=== PATIENT | male | born 1965 | race Caucasian/White ===

== ENCOUNTER 2017-01-21 08:30 | Emergency (ER) | payer OTHER ==
--- NOTE | 2017-01-21 08:32 | PDOC ---
History of Present Illness - General Chief Complaint: Sore Throat Stated Complaint: SORE THROAT Time Seen by Provider: 01/21/17 08:32 History Source: Patient Exam Limitations: No Limitations - History of Present Illness Initial Comments: 01/21/17 08:32 This is a 51-year-old male who presents emergency department with a complaint of sore throat present for the past 3 days No fevers (+) cough, (+) rhinorrhea His daughter had strep throat approximately 3 months ago Pt concenred that he has the same PMH: Denies PSH: Denies Medications: ALL: NKDA Social: GENERAL/CONSTITUTIONAL: No: fever, chills, weakness, loss of appetite. HEAD, EYES, EARS, NOSE AND THROAT: (+) Throat pain CARDIOVASCULAR: No: chest pain, lightheadedness, palpitations, syncope RESPIRATORY: No: cough, shortness of breath, wheezing, hemoptysis, stridor. GASTROINTESTINAL: No: nausea, vomiting GENERAL: The patient is in no acute distress. HEAD: Normal with no signs of trauma. EYES: PERRLA, EOMI, sclera anicteric, conjunctiva clear. ENT: Ears normal, nares patent, oropharynx erythematous, no exudates. Moist mucous membranes. 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 01/21/17 08:49 Past History - Past Medical History Allergies/Adverse Reactions: Allergies Allergy/AdvReac Type Severity Reaction Status Date / Time No Known Allergies Allergy Verified 01/21/17 08:31 Home Medications: Ambulatory Orders NK [No Known Home Medication] 01/21/17 Medical Decision Making - Medical Decision Making 01/21/17 08:51 Rapid strep negative Will discharge to home *DC/Admit/Observation/Transfer Diagnosis at time of Disposition: Pharyngitis Qualifiers: Pharyngitis/tonsillitis etiology: other specified organisms Qualified Code(s): J02.8 - Acute pharyngitis due to other specified organisms - Discharge Dispostion Disposition: HOME Condition at time of disposition: Stable Admit: No - Patient Instructions Printed Discharge Instructions: DI for Viral Pharyngitis Additional Instructions: Return to the emergency department immediately with ANY new, persistent or worsening symptoms. Continue any medications as previously prescribed by your physician. You should follow up with your primary doctor as soon as possible regarding today's emergency department visit. . Please make sure your doctor reviews the results of your emergency evaluation. Thank you for coming to the [facility] today for your care. It was a pleasure to see you today. Please note that your evaluation is INCOMPLETE until you follow-up with your doctor.
[2017-01-21 08:33] VITALS: BP 126/91; PULSE 72; TEMP 98.5; BMI 29.7
== END 2017-01-21 10:08 | disposition home or self-care (01) ==
LOC: FER 08:30
DX: J02.8 Acute pharyngitis due to other specified organisms (principal)
CPT/HCPCS: 87070; 87430; 99281-25

== ENCOUNTER 2017-02-13 10:45 | Emergency (ER) | payer OTHER ==
[2017-02-13 10:50] VITALS: BP 133/97; PULSE 67; TEMP 98.7; BMI 29.7
--- NOTE | 2017-02-13 11:09 | PDOC ---
History of Present Illness - General Chief Complaint: Pain Stated Complaint: RIGHT HEEL/LEG PAIN Time Seen by Provider: 02/13/17 10:50 History Source: Patient Exam Limitations: No Limitations - History of Present Illness Initial Comments: 02/13/17 11:01 52 y/o male with right foot pain and right thumb pain. Patient denies fall or trauma. This pain has been present for over 2 months, takes Advil once in a while for the pain. No SOB or chest pain. No swelling or redness. Patient states that he has seen an internal control specialist and had a torn labrum in right hip. MRI done showed some vascular lesions. 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 Had 2 biopsies done and no new cancer development. Denies redness or swelling as well to the thumb. No fever or chills. Worse in the morning. Severity: mild Past History - Past Medical History Allergies/Adverse Reactions: Allergies Allergy/AdvReac Type Severity Reaction Status Date / Time No Known Allergies Allergy Verified 02/13/17 10:52 Home Medications: Ambulatory Orders NK [No Known Home Medication] 01/21/17 Cancer: Yes (MELANOMA OF RIGHT THUMB) Other medical history: TORN LABRUM - Psycho/Social/Smoking Cessation Hx Anxiety: No Suicidal Ideation: No Smoking History: Former smoker Have you smoked in the past 12 months: No If you are a former smoker, when did you quit?: 17 YEARS AGO Information on smoking cessation initiated: No Hx Alcohol Use: No Drug/Substance Use Hx: No Substance Use Type: None Review of Systems - Review of Systems Able to Perform ROS?: Yes Is the patient limited Kinyarwanda proficient: No Constitutional: No: Chills, Fever Respiratory: No: Cough, Shortness of Breath Cardiac (ROS): No: Chest Pain, Palpitations ABD/GI: No: Nausea, Vomiting Integumentary: No: Bruising, Change in Hair/Nails, Erythema Neurological: No: Numbness, Paresthesia All Other Systems: Reviewed and Negative *Physical Exam - Vital Signs Last Vital Signs Temp Pulse Resp BP Pulse Ox 98.7 F 67 18 133/97 96 02/13/17 10:47 02/13/17 10:47 02/13/17 10:47 02/13/17 10:47 02/13/17 10:47 - Physical Exam General Appearance: Yes: Nourished, Appropriately Dressed. No: Apparent Distress HEENT: positive: EOMI, GERARDO, Normal ENT Inspection Neck: positive: Trachea midline, Normal Thyroid, Supple Respiratory/Chest: positive: Lungs Clear, Normal Breath Sounds Cardiovascular: positive: Regular Rhythm, Regular Rate, S1, S2 Vascular Pulses: Femoral (R): 4+, Femoral (L): 4+, Carotid (R): 4+, Carotid (L) : 4+, Dorsalis-Pedis (R): 4+, Doralis-Pedis (L): 4+ Gastrointestinal/Abdominal: positive: Normal Bowel Sounds, Flat, Soft, Pulsatile Mass. negative: Tender, Organomegaly Lymphatic: negative: Adenopathy, Tenderness, Other Musculoskeletal: positive: Normal Inspection. negative: CVA Tenderness, Vertebral Tenderness Extremity: positive: Normal Capillary Refill, Normal Inspection, Normal Range of Motion, Other (right leg pulses 2+/4 b/l in LE, no focal deficits noted, full ROM, no compartment syndrome, no redness or swelling, no heel pain). negative: Tender, Coldness, Delayed Capillary Refill, Pedal Edema, Swelling, Calf Tenderness, Erythema Integumentary: positive: Normal Color, Dry, Warm, Other (right thumb with no nail, skin over grown, no swelling or erythma, full ROM, no tenderness noted). negative: Erythema, Mottled, Cold, Diaphoresis, Hives, Petechiae, Swelling, Ecchymosis, Bruising Neurologic: positive: metal stamper II-XII NML intact, Fully Oriented, Alert, Normal Mood/ Affect, Normal Response, Motor Strength 5/5. negative: Numbness, Sensory Deficit ED Treatment Course - ADDITIONAL ORDERS Additional order review: 02/13/17 11:13 Right heel pain, will x-ray to r/o heel spur Possible plantar fasciitis. Will need follow up with Cash Crop Farmer/Orthopedist - RADIOLOGY Radiology Studies Ordered: Category Date Time Status FOOT-RIGHT [RAD] Stat Radiology 02/13/17 11:00 Ordered 02/13/17 11:19 x-ray right foot, no fracture seen, heel spur *DC/Admit/Observation/Transfer Diagnosis at time of Disposition: Plantar fasciitis of right foot Calcaneal spur Qualifiers: Laterality: right Qualified Code(s): M77.31 - Calcaneal spur, right foot - Discharge Dispostion Disposition: HOME Condition at time of disposition: Stable Admit: No - Referrals Referrals: Hai Guevara MD [Staff Physician] - Ellis Jay MD [Staff Physician] - - Patient Instructions Printed Discharge Instructions: DI for Plantar Fasciitis Additional Instructions: Motrin, rest, Ice Follow up with Orthopedics/Cash Crop Farmer If worsen return to ER
== END 2017-02-13 11:29 | disposition home or self-care (01) ==
LOC: FER 10:45
DX: M72.2 Plantar fascial fibromatosis (principal); M77.31 Calcaneal spur, right foot; Z87.891 Personal history of nicotine dependence; Z85.820 Personal history of malignant melanoma of skin
CPT/HCPCS: 73630-TC-RT; 99282-25

== ENCOUNTER 2018-11-02 13:19 | Emergency (ER) | payer OTHER ==
[2018-11-02 13:29] VITALS: BP 129/96; PULSE 65; TEMP 98; BMI 30.5
--- NOTE | 2018-11-02 13:57 | PDOC ---
History of Present Illness - General Chief Complaint: Pain Stated Complaint: right leg pain Time Seen by Provider: 11/02/18 13:51 History Source: Patient Exam Limitations: No Limitations - History of Present Illness Initial Comments: 11/02/18 14:26 53y M hx of melnaoma sp excision presents with worsening R hip pain and R knee pain x 3 years. pt had an injury 3 eyars ago where a file cabinet fell on his leg, had an MRI showing a torn hip labrum. he has followed up with multiple ortho since then and was referred to various services such as machine tracer PT but pt states that his pain has not improved and seesm to be worsening. he came today as it was wosrening. no recent falls or injuries. no fever/chills, numbness/tingling/weakness, diarrhea, dysuria, back pain, arm pain, neck pain, headache. pt notse the pain on his hip radiates down the frotn of his thigh and is burning in nature. 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 motrin seems to help for several days but then it returns. his hip/knee pain seems worse when he is walking or flexion his hip and knee. ortho: Ismael Past History - Past Medical History Allergies/Adverse Reactions: Allergies Allergy/AdvReac Type Severity Reaction Status Date / Time No Known Allergies Allergy Verified 11/02/18 13:22 Home Medications: Ambulatory Orders Ezetimibe [Zetia] 0 mg PO DAILY 11/02/18 Cancer: Yes (MELANOMA OF RIGHT THUMB) COPD: No Hypercholesterolemia: Yes - Suicide/Smoking/Psychosocial Hx Smoking History: Never smoked Have you smoked in the past 12 months: No If you are a former smoker, when did you quit?: 17 YEARS AGO Hx Alcohol Use: Yes (occasionally) Drug/Substance Use Hx: No Substance Use Type: None Review of Systems - Review of Systems Able to Perform ROS?: Yes Comments:: 11/02/18 14:34 Constitutional - no reported Fever, Chills, HEENT: no reported vision changes, sore throat Respiratory: no reported cough, sob, hemoptysis Cardiac: no reported chest pain, palpitations, light headedness, leg swelling Abd/GI: no reported abd pain, nausea, vomiting, blood per rectum, melena, diarrhea : no reported dysuria, frequency, discharge Musculskelatal - +R hip pain, R knee pain no reported back pain, joint swelling skin - no reported bruising, erythema, rash neurological: no reported headache, numbness, focal weakness, tingling, ataxia, hematologic: no reported easy bruising, easy bleeding *Physical Exam - Vital Signs Last Vital Signs Temp Pulse Resp BP Pulse Ox 98 F 65 18 129/96 99 11/02/18 13:20 11/02/18 13:20 11/02/18 13:20 11/02/18 13:20 11/02/18 13:20 - Physical Exam Comments: 11/02/18 14:35 GENERAL: The patient is awake, alert, and fully oriented, Nontoxic - in no acute distress. HEAD: Normocephalic, atraumatic. EYES: extraocular movements intact, sclera anicteric, conjunctiva clear. ENT: Normal voice, Moist mucous membranes. NECK: Normal range of motion, supple LUNGS: Breath sounds equal, clear to auscultation bilaterally. No wheezes, no rhonchi, no rales. HEART: Regular rate and rhythm, normal S1 and S2 without murmur, rub or gallop. ABDOMEN: Soft, nontender, normoactive bowel sounds. No guarding, no rebound. . No CVA tenderness EXTREMITIES: lamar ROM of R hip/knee, no effusions, swelling, rash. +mild pain on active ROM of hip and knee, no focal bony tenderness, mild crepitus on palpation of petalla, small soft nontender mass on R posterior knee above gastrocnemius, sensation intact throughout. NEUROLOGICAL: No facial assymetry, Normal speech, moving all 4 extremities spontaneously ands ymmetrically PSYCH: Normal mood, normal affect. SKIN: Warm, Dry, normal turgor, Moderate Sedation - Procedure Monitoring Vital Signs: Procedure Monitoring Vital Signs Temperature 98 F 11/02/18 13:20 Pulse Rate 65 11/02/18 13:20 Respiratory Rate 18 11/02/18 13:20 Blood Pressure 129/96 11/02/18 13:20 O2 Sat by Pulse Oximetry (%) 99 11/02/18 13:20 Medical Decision Making - Medical Decision Making 11/02/18 14:36 suspect chronic pain - psosible secondary to overuse / adjustment due to his labrum will ck xray of hip/knee no fever, redness, swelling, or signs of septic joint pt declines our pain meds, states h will take his own motrin if xray neg will refer to ortho for further evaluation 11/02/18 15:56 xrays neg for fx, dislocation arhtirits noted on R hip will dc to fu with ortho I discussed the physical exam findings, ancillary test results and final diagnoses with the patient. I answered all of the patient's questions. The patient was satisfied with the care received and felt comfortable with the discharge plan and treatment plan. The patient will call their primary care physician within 24 hours to arrange follow-up and will return to the Emergency Department with any new, persistent or worsening symptoms. *DC/Admit/Observation/Transfer Diagnosis at time of Disposition: Hip pain, right Knee pain, right Qualifiers: Chronicity: chronic Qualified Code(s): M25.561 - Pain in right knee - Discharge Dispostion Disposition: HOME Condition at time of disposition: Stable Decision to Admit order: No - Referrals Referrals: Maciej Mcmahan MD [Staff Physician] - - Patient Instructions Printed Discharge Instructions: DI for Knee Pain, DI for Hip Pain Additional Instructions: Return to the emergency department immediately with ANY new, persistent or worsening symptoms. Take motrin/tylenol as needed for your pain. You MUST call and follow up with your doctor tomorrow for further evaluation of your symptoms. Results were discussed with you. Please make sure your doctor reviews the results of your emergency evaluation. - Post Discharge Activity
== END 2018-11-02 16:19 | disposition home or self-care (01) ==
LOC: FER 13:19
DX: M25.561 Pain in right knee (principal); M25.551 Pain in right hip; Z87.891 Personal history of nicotine dependence; E78.00 Pure hypercholesterolemia, unspecified
CPT/HCPCS: 73523-TC-FY; 73562-TC-RT-FY; 99282-25

== ENCOUNTER 2019-06-09 22:47 | Inpatient (IN) | payer OTHER ==
--- NOTE | 2019-06-09 23:04 | PDOC ---
History of Present Illness - General Stated Complaint: ABD PAIN Time Seen by Provider: 06/09/19 22:53 - History of Present Illness Initial Comments: 06/09/19 23:43 54 year old man with a history of RBBB but no other significant history who presents with lower abdominal pain rated 10/10 relieved with burping associated with pebbly stool at 1600 and one episode of nbnb emesis occurring after he ate a large steak, chicken nuggets and chicken dumplings. The patient reports he had a recent in situ melanoma surgery on his R thumb 2 days ago, recieved anesthesia and was told not to heat any high fiber foods for several days. The patient reports some diaphoresis and nausea but deneis chest pain or shortness of breath. He has took an wendy selter and 2 sennas prior to arrival. He has no other complaints at bedside. ROS GENERAL/CONSTITUTIONAL: No fever or chills. No weakness. HEAD, EYES, EARS, NOSE AND THROAT: No change in vision. No ear pain or discharge. No sore throat. CARDIOVASCULAR: No chest pain or shortness of breath RESPIRATORY: No cough, wheezing, or hemoptysis. GASTROINTESTINAL: See HPI GENITOURINARY: No dysuria, frequency, or change in urination. MUSCULOSKELETAL: No joint or muscle swelling or pain. No neck or back pain. NEUROLOGIC: No headache, vertigo, loss of consciousness, or change in strength/ sensation. PE GENERAL: Awake, alert, and fully oriented, in no acute distress HEAD: No signs of trauma, normocephalic, atraumatic EYES: EOMI, sclera anicteric, conjunctiva clear ENT: oropharynx clear without exudates. Moist mucosa NECK: Normal ROM, supple LUNGS: No distress, speaks full sentences, clear to auscultation bilaterally HEART: Regular rate and rhythm, normal S1 and S2, no murmurs, rubs or gallops, peripheral pulses normal and equal bilaterally. ABDOMEN: Soft, + slight lower abdominal tenderness. No guarding, no rebound. No masses EXTREMITIES : Normal inspection, Normal range of motion, no edema. No clubbing or cyanosis. NEUROLOGICAL: Cranial nerves II through XII grossly intact. Normal speech, no focal sensorimotor deficits SKIN: Warm, Dry, normal turgor, no rashes or lesions noted MDM DDX including but not limited to: appendicitis vs colitis vs diverticulitis constipation W/U: - cbc, cmp, CTAP TX: - ivf, tylenol ED Course: Patient with persistent pain give morphine Labs - wbc of 20 CTAP: mild inflammatory changes around L colon, r/o mass/lesion plan for admission for abx and further work up and evaluation Lupe Dubon, PGY2 Emergency Medicine Past History - Past Medical History Allergies/Adverse Reactions: Allergies Allergy/AdvReac Type Severity Reaction Status Date / Time No Known Allergies Allergy Verified 06/10/19 03:04 Home Medications: Ambulatory Orders NK [No Known Home Medication] 06/10/19 Cancer: Yes (MELANOMA OF RIGHT THUMB) COPD: No Hypercholesterolemia: Yes - Suicide/Smoking/Psychosocial Hx Smoking History: Never smoked Have you smoked in the past 12 months: No If you are a former smoker, when did you quit?: 17 YEARS AGO Hx Alcohol Use: Yes (occasionally) Drug/Substance Use Hx: No Substance Use Type: None ED Treatment Course - LABORATORY CBC & Chemistry Diagram: 06/10/19 00:25 06/10/19 00:25 *DC/Admit/Observation/Transfer Diagnosis at time of Disposition: Colitis - Discharge Dispostion Condition at time of disposition: Stable Decision to Admit order: Yes - Referrals - Patient Instructions - Post Discharge Activity
[2019-06-09] MEDS ORDERED: LACTULOSE 20 GM/30 ML UDC (FOR ORAL USE ONLY) PO ONE (23:05)
[2019-06-09] MEDS ORDERED: MAG HYDROX/AL HYDROX/SIMETH 30 ML UNIT-DOSE CUP PO ONE (23:09)
[2019-06-09] MEDS ORDERED: GLYCERIN 1 RECTAL SUPPOSITORY, ADULT PR ONE (23:09)
[2019-06-09] MEDS ORDERED: ACETAMINOPHEN 1000 MG/100 ML VIAL (NON FORMULARY) IVPB ONE (23:09)
[2019-06-09] MEDS ORDERED: SODIUM CHLORIDE 1,000 ML IV SCH (23:15)
[2019-06-09] MEDS ORDERED: ACETAMINOPHEN INJECTION 100 ML IVPB ONE (23:35)
[2019-06-09] MEDS ORDERED: MAG HYDROX/AL HYDROX/SIMETH 30 ML UNIT-DOSE CUP ONE (23:36)
--- NOTE | 2019-06-10 00:28 | PDOC ---
Documentation entered by Cory Delong SCRIBE, acting as scribe for Yisel Sierra MD. Yisel Sierra MD: This documentation has been prepared by the Baljeet kilpatrick Daniel, SCRIBE, under my direction and personally reviewed by me in its entirety. I confirm that the documentation accurately reflects all work, treatment, procedures, and medical decision making performed by me. Attending Attestation - Resident Resident Name: Lupe Dubon - ED Attending Attestation I have performed the following: I have examined & evaluated the patient, The case was reviewed & discussed with the resident, I agree w/resident's findings & plan - HPI HPI: 06/09/19 23:15 The patient is a 54 year old male with a past medical history of right bundle branch block and melanoma on his thumb here today for evaluation of abdominal pain. The patient reports that he had surgery on (06/07/19) and was told not to eat any red meat. Patient reports that he had 10/10 diffuse abdominal pain today after eating steak with associated nausea and diaphoresis. He also states that he feels like he has to defecate and states that he took senna. He also notes that his last bowel movement was 4 hours ago which he describes as pebbley. Allergies: NKA - Physicial Exam PE: 06/09/19 23:16 GENERAL: Awake, alert, and fully oriented, in no acute distress HEAD: No signs of trauma EYES: PERRLA, EOMI, sclera anicteric, conjunctiva clear ENT: Auricles normal inspection, hearing grossly normal, nares patent, oropharynx clear without exudates. Moist mucosa NECK: Normal ROM, supple, no lymphadenopathy, JVD, or masses LUNGS: Breath sounds equal, clear to auscultation bilaterally. No wheezes, and no crackles HEART: Regular rate and rhythm, normal S1 and S2, no murmurs, rubs or gallops ABDOMEN: +minimally diffuse tenderness. Soft. No guarding, no rebound. No masses EXTREMITIES: Normal range of motion, no edema. No clubbing or cyanosis. No cords, erythema, or tenderness NEUROLOGICAL: Cranial nerves II through XII grossly intact. Normal speech, normal gait SKIN: Warm, Dry, normal turgor, no rashes or lesions noted. - Medical Decision Making 06/10/19 00:27 Pt's abd id soft, ND; slightly tender and abd sounds are not terribly gassy. No flank pain and no rashes and no fevers. 06/10/19 01:32 Pt's pain has evolved and he has RLQ tenderness with guarding. We will treat with morphine. Getting a dry CT scan to r/o appendicitis; pt has elevated BUN/ CR, and we will avoid IV contrast, as per hospital policy. 06/10/19 20:01 Pt has colitis and he was admitted; levaquin and flagyl were given. Morphine for pain; hydration. Pt will be admitted. His PMD is Bosser.
[2019-06-10 00:46] LABS: BASO % 0.3 % (0-2.0); EOS % 0.2 % (0-4.5); HEMATOCRIT 44.1 % (35.4-49); HEMOGLOBIN 14.8 GM/dL (11.7-16.9); LYMPH % 8.1 % (8-40); MCH 29.8 pg (25.7-33.7); MCHC 33.5 g/dl (32.0-35.9); MEAN CELL VOLUME 88.8 fl (80-96); MONO % 6.1 % (3.8-10.2); NEUT % 85.3 % (42.8-82.8); PLATELET COUNT 301 K/MM3 (134-434); RBC 4.97 M/mm3 (4.00-5.60)
[2019-06-10 01:06] LABS: BILIRUBIN,TOTAL 0.3 mg/dL (0.2-1); BLOOD UREA NITROGEN 29.7 mg/dL (7-18); CREATININE 1.6 mg/dL (0.55-1.3); POTASSIUM 3.9 mmol/L (3.5-5.1); TOT PROT 7.2 g/dl (6.4-8.2)
[2019-06-10] MEDS ORDERED: morphine CARPU-JECT 2 MG/1 ML DISP.SYRIN IVPUSH ONE ×2 (01:34→02:34)
[2019-06-10] MEDS ORDERED: MORPHINE SULFATE 2 MG/ML VIAL ONE ×2 (01:48→02:37)
[2019-06-10 01:49] LABS: ANISOCYTOSIS 0; MACROCYTOSIS 0; PLATELET ESTIMATE NORMAL
[2019-06-10 02:14] LABS: PH,URINE 6.5 (5.0-8.0); URINE APPEARANCE CLEAR; URINE BILIRUBIN NEGATIVE (NEGATIVE); URINE COLOR YELLOW; URINE GLUCOSE (UA) NEGATIVE (NEGATIVE); URINE KETONE NEGATIVE (NEGATIVE); URINE LEUK ESTERASE NEGATIVE (NEGATIVE); URINE NITRITE NEGATIVE (NEGATIVE); URINE PROTEIN NEGATIVE (NEGATIVE); URINE UROBILINOGEN 0.2 mg/dL (0.2-1.0)
[2019-06-10] MEDS ORDERED: SODIUM CHLORIDE 0.9% 500 ML INFUS.BAG IV ONE (02:34)
[2019-06-10] MEDS ORDERED: HYDROmorphone HCl 2 MG/ML VIAL IVPUSH ONE (04:22)
[2019-06-10] MEDS ORDERED: HYDROmorphone HCl 2 MG/ML VIAL ONE ×2 (04:40→08:02)
[2019-06-10] MEDS ORDERED: LACTATED RINGERS SOLUTION 1,000 ML IV SCH (04:45)
--- NOTE | 2019-06-10 04:56 | HP ---
CHIEF COMPLAINT: abdomen exam HISTORY OF PRESENT ILLNESS: Patient is a 54 yo M with HLD, insitu skin melanoma (s/p recent surgical incision), presenting to the ED with diffuse abdominal pain that started last night. He says its sharp, non radiating, lower abdominal pain, worsened after eating and associated with constipation with no improvement with senna. Patient has been constipated since the melanoma removal and describes his stool as pebbly. Patient had 1 episode of NBNB vomiting. he denies fevers, chills, diarrhea, bloody stool. last colonoscopy 20 years ago which he says was normal. ER course was notable for: (1)CTAP: There is a large stool burden in the sigmoid and left colon. There are mild inflammatory changes around the left colon. The findings may represent colitis possibly stercoral colitis due to the large stool burden although other types of colitis such as infectious inflammatory or ischemic should be excluded as well. Please note that there is abrupt change from stool filled sigmoid to normal caliber at the rectosigmoid junction. (2) 173/112 BP, CHRISTIANNE (3) WBC 20 Recent Travel: PAST MEDICAL HISTORY: PAST SURGICAL HISTORY: Had a R thumb melanoma surgically removed under general anesthesia. Social History: Smoking: Alcohol: Drugs: Family History: Allergies No Known Allergies Allergy (Verified 06/10/19 03:04) HOME MEDICATIONS: Home Medications Medication Instructions Recorded NK [No Known Home Medication] 06/10/19 REVIEW OF SYSTEMS CONSTITUTIONAL: Absent: fever, chills, diaphoresis, generalized weakness, malaise, loss of appetite, weight change HEENT: Absent: rhinorrhea, nasal congestion, throat pain, throat swelling, difficulty swallowing, mouth swelling, ear pain, eye pain, visual changes CARDIOVASCULAR: Absent: chest pain, syncope, palpitations, irregular heart rate, lightheadedness , peripheral edema RESPIRATORY: Absent: cough, shortness of breath, dyspnea with exertion, orthopnea, wheezing, stridor, hemoptysis GASTROINTESTINAL: abd pain, nausea, vomiting Absent: diarrhea, constipation, melena, hematochezia GENITOURINARY: Absent: dysuria, frequency, urgency, hesitancy, hematuria, flank pain, genital pain MUSCULOSKELETAL: Absent: myalgia, arthralgia, joint swelling, back pain, neck pain SKIN: Absent: rash, itching, pallor HEMATOLOGIC/IMMUNOLOGIC: Absent: easy bleeding, easy bruising, lymphadenopathy, frequent infections ENDOCRINE: Absent: unexplained weight gain, unexplained weight loss, heat intolerance, cold intolerance NEUROLOGIC: Absent: headache, focal weakness or paresthesias, dizziness, unsteady gait, seizure, mental status changes, bladder or bowel incontinence PSYCHIATRIC: Absent: anxiety, depression, suicidal or homicidal ideation, hallucinations. PHYSICAL EXAMINATION Vital Signs - 24 hr 06/09/19 06/10/19 23:15 02:45 Temperature 97.4 F L 97.9 F Pulse Rate 60 Pulse Rate [ 62 Right Radial] Respiratory 20 16 Rate Blood Pressure 173/112 H Blood Pressure 152/87 [Right Arm] O2 Sat by Pulse 99 94 L Oximetry (%) GENERAL: a/o x 3, in moderate distress HEAD: Normal with no signs of trauma. EYES: sclera anicteric, conjunctiva clear. No lid lag. EARS, NOSE, THROAT: Moist mucous membranes. NECK: supple without lymphadenopathy, JVD, or masses. LUNGS: Breath sounds equal, clear to auscultation bilaterally. HEART: RRR, no MGR ABDOMEN: +BS, diffuse tenderness to palpation. mildly distended, no guarding, rebound. slight tympany. LOWER EXTREMITIES: 2+ pulses, No peripheral edema. ASSESSMENT/PLAN: Patient is a 54 yo M with no known PMHx, presenting to the ED with diffuse abdominal pain. #Abd pain -CTAP: There is a large stool burden in the sigmoid and left colon. There are mild inflammatory changes around the left colon. The findings may represent colitis possibly stercoral colitis due to the large stool burden although other types of colitis such as infectious inflammatory or ischemic should be excluded as well. Please note that there is abrupt change from stool filled sigmoid to normal caliber at the rectosigmoid junction. Recommend evaluation to rule out lesion/mass in this area. -Order CTAP w/ oral and IV contrast. -GI consulted: Dr. Dobbins -Sx consulted -IV abx: levaquin, flagyl -NPO -LR @ 100ml/hour -Dilaudid 1mg q4h PRN -FOBT ordered. #CHRISTIANNE -IV fluids -urine studies #Dvt ppx -hep sq ATTENDING PHYSICIAN STATEMENT I saw and evaluated the patient. I reviewed the resident's note and discussed the case with the resident. I agree with the resident's findings and plan as documented. SUBJECTIVE: OBJECTIVE: ASSESSMENT AND PLAN:
[2019-06-10] MEDS ORDERED: HEPARIN NA (PORCINE) 5,000 UNITS/ML 1ML VIAL ONE (05:43)
[2019-06-10] MEDS: HEPARIN NA (PORCINE) 5,000 UNITS/ML 1ML VIAL SQ SCH ×3 (06:25→21:11)
[2019-06-10 07:18] LABS: HEMATOCRIT 39.5 % (35.4-49); HEMOGLOBIN 13.4 GM/dL (11.7-16.9); MCH 29.9 pg (25.7-33.7); MEAN CELL VOLUME 88.2 fl (80-96); MEAN PLT VOLUME 7.8 fl (7.5-11.1); PLATELET COUNT 272 K/MM3 (134-434); RBC 4.48 M/mm3 (4.00-5.60); RDW 13.3 % (11.9-15.9); WHITE BLOOD COUNT 19.8 K/mm3 (4.0-10.0)
--- NOTE | 2019-06-10 07:27 | PN ---
Teaching Attending Note Name of Resident: Karen Cantu ATTENDING PHYSICIAN STATEMENT I saw and evaluated the patient. I reviewed the resident's note and discussed the case with the resident. I agree with the resident's findings and plan as documented. Seen and examined; please refer to resident note for further historical information. Briefly, this is a 54 y/o male presenting to the ER with a CC of abdominal pain worsening for 1 day with smaller BMs that have been progressive; CT scan shows dilated colon that is normal at the rectosig junction; he has remote c-scope (estimates ~20 years ago) that he recalls as being negative. Descibes BM as "tamanna" coming out. He is in moderate to severe pain. He just had surgery for removal of melanoma lesion on R-hand (remote history of this with known liver lesion similar to what is seen on imaging likely being seen ~10 years ago on PET scan per the pt). Consulting GI and General Surgery and heme-onc. Will need to obtain old records. VS, labs, imaging reveiwed NAD, AAo, resting in bed RRR s1/2 Tender, mild tympany with distention noted; reduced BS CN2-12 wnl, no fnd Normal mood, appropriate behavior CN2-12 wnl, no fnd EKG reviewed Prelim CT reviewed; report demonstrates large stool burdeon in sigmoid and L- colom; inflam changes L-colon likely 2/2 colitis (ischemic vs. stercoral vs. inflammatory); normal caliber distal to the rectosigmoid junction. ASSESSMENT AND PLAN: Patient is found to have severe abdominal pain presenting with colitis ( considering different etiologies; CT with contrast, lactate, CPK pending); found to have potential mass/lesion around rectosigmoid area given tapering of the colon. # Acute Colitis -Considering different etiologies; checking lactate, CPK, contrasted study. Followup cultures. Surgical and GI followup. Empiric zosyn with ID consult; appreciate expert opinion. # Rectosigmoid mass/lesion r/o obstruciton -Noted prelim results; remote negative c-scope. GI consulted. NPO and pain control. IVF ordered. Consider neoplastic cause. # Hx Melanoma -States that has had melanoma in the past with known liver lesion seen on remote PET (would like to ideally compare with current CT). Consulting oncology ; can followup with outside pathology report. # Distended bladder Could be 2/2 constipation lim inserted Full Code
[2019-06-10 07:29] LABS: ALBUMIN 3.4 g/dl (3.4-5.0); BILIRUBIN,TOTAL 0.4 mg/dL (0.2-1); BLOOD UREA NITROGEN 21.8 mg/dL (7-18); CREATININE 1.2 mg/dL (0.55-1.3); TOT PROT 6.1 g/dl (6.4-8.2)
[2019-06-10 07:33] LABS: INR 0.98 (0.83-1.09); PROTHROMBIN TIME (PATIENT) 11.6 SEC (9.7-13.0)
[2019-06-10] MEDS: HYDROmorphone HCl 2 MG/ML VIAL IVPB PRN ×3 (08:07→21:05)
[2019-06-10] MEDS ORDERED: SODIUM CHLORIDE 0.9% 1000 ML INFUS.BAG IV ONE (09:58)
[2019-06-10] MEDS ORDERED: PIPERACILLIN/TAZOB 3.375 GM 3.375 GM in DEXTROSE 5%-WATER - 50 ML IVPB SCH ×2 (10:00→10:15)
--- NOTE | 2019-06-10 10:06 | PN ---
Progress Note (short form) - Note Progress Note: Seen and examined; for today's exam findings, etc. please refer to H and P dated after midnight per this 24h period Patient seen and examined in AM; to be covered by daytime hospitalist reachable through [employer] after 10A. He was still in pain only somewhat helped with dilaudid and lactate/CK not drawn initially with AM labs; revealed that he has slightly + lactate. CT w/ contrast still pending. Bolusing 1L. Called Dr. Dobbins's service and spoke with Dr. Morales. ID consulted. Started on Zosyn. Dilaudid for pain control. Checking KUB to see if progressive dilation intestines. WBC slightly down. Likely sepsis Colitis (infectious vs. ischemic; trending lactate) Lactic acidosis HTN ? Large bowel obstructing mass vs. other Melanoma hx Full Code
[2019-06-10] MEDS ORDERED: PIPERACILLIN/TAZOB 3.375 GM 3.375 GM/50 ML BAG IVPB ONE (10:20)
--- NOTE | 2019-06-10 11:01 | CON.ID ---
Consult Consult Specialty:: infectious diseases - Alcohol/Substance Use Hx Alcohol Use: Yes (occasionally) - Smoking History Smoking history: Never smoked Have you smoked in the past 12 months: No If you are a former smoker, when did you quit?: 17 YEARS AGO Home Medications - Allergies Allergies/Adverse Reactions: Allergies Allergy/AdvReac Type Severity Reaction Status Date / Time No Known Allergies Allergy Verified 06/10/19 03:04 - Home Medications Home Medications: Ambulatory Orders NK [No Known Home Medication] 06/10/19 Physical Exam Vital Signs: Vital Signs Temperature 98.1 F 06/10/19 06:30 Pulse Rate 84 06/10/19 06:30 Respiratory Rate 16 06/10/19 06:30 Blood Pressure 140/78 06/10/19 06:30 O2 Sat by Pulse Oximetry (%) 96 06/10/19 06:30 Labs: CBC, BMP 06/10/19 06:20 06/10/19 06:20
--- NOTE | 2019-06-10 11:27 | EKG ---
Test Reason : Blood Pressure : / mmHG Vent. Rate : 077 BPM Atrial Rate : 049 BPM P-R Int : 168 ms QRS Dur : 130 ms QT Int : 436 ms P-R-T Axes : 031 -29 -20 degrees QTc Int : 493 ms SINUS BRADYCARDIA RIGHT BUNDLE BRANCH BLOCK ABNORMAL ECG NO PREVIOUS ECGS AVAILABLE BASELINE ARTIFACT CLINICAL CORRELATION IS RECOMMENDED Confirmed by LINDA FERNANDES, OSMIN ([id number]) on 06/10/2019 11:26:45 AM Referred By: Confirmed By:OSMIN MCKEON MD
[2019-06-10] MEDS ORDERED: SODIUM PHOSPHATE/NA BIPHOS 133 ML ENEMA PR ONE (12:13)
[2019-06-10] MEDS: DEXTROSE 5%-LACTATED RINGERS 1,000 ML IV SCH ×2 (12:28→21:13)
--- NOTE | 2019-06-10 17:34 | CON.GI ---
Consult Consult Specialty:: GI coverage for Dr Mancini Reason for Consultation:: abdominal pain - History of Present Illness History of Present Illness: The patient was seen in the ER The patient is a 54 year old male with a past medical history of right bundle branch block and melanoma on his thumb here today for evaluation of abdominal pain. The patient reports that he had surgery on (06/07/19) and was told not to eat any red meat. Patient reports that he had 10/10 diffuse abdominal pain today after eating steak with associated nausea and diaphoresis. He has history of incomplete evacuation, pellet like stool abdominal bloating. He was noted to have WBC of 20,000, CT revealed colon retention and thickening of the colon. The abdominal pain improved after IV hydration and antibiotics. I - Alcohol/Substance Use Hx Alcohol Use: Yes (occasionally) - Smoking History Smoking history: Never smoked Have you smoked in the past 12 months: No If you are a former smoker, when did you quit?: 17 YEARS AGO Home Medications - Allergies Allergies/Adverse Reactions: Allergies Allergy/AdvReac Type Severity Reaction Status Date / Time No Known Allergies Allergy Verified 06/10/19 03:04 - Home Medications Home Medications: Ambulatory Orders NK [No Known Home Medication] 06/10/19 Physical Exam-GI Vital Signs: Vital Signs Temperature 98.8 F 06/10/19 15:55 Pulse Rate 76 06/10/19 15:55 Respiratory Rate 18 06/10/19 15:55 Blood Pressure 146/89 06/10/19 15:55 O2 Sat by Pulse Oximetry (%) 95 06/10/19 15:55 Constitutional: Yes: Well Nourished, Mild Distress Eyes: Yes: Conjunctiva Clear HENT: Yes: Atraumatic Cardiovascular: Yes: Regular Rate and Rhythm Respiratory: Yes: CTA Bilaterally ...Auscultate: Yes: Normoactive Bowel Sounds ...Palpate: Yes: Soft, Tenderness (--diffuse). No: Firm/Rigid, Guarding, Hepatomegaly, Mass, Pulsatile Mass, Splenomegaly, Tenderness, Rebound ...Percussion: Yes: Tympanitic Labs: CBC, BMP 06/10/19 06:20 06/10/19 06:20 INR, PTT INR 0.98 (0.83-1.09) 06/10/19 06:20 Hepatic Panel Total Bilirubin 0.4 mg/dL (0.2-1) 06/10/19 06:20 AST 18 U/L (15-37) 06/10/19 06:20 ALT 44 U/L (13-61) 06/10/19 06:20 Alkaline Phosphatase 66 U/L (45-117) 06/10/19 06:20 Albumin 3.4 g/dl (3.4-5.0) 06/10/19 06:20 Problem List - Problems (1) Ischemic colitis Assessment/Plan: exacerbated by dehydration,colon retention no evidence of appendicitis R>fleet enema ordered IV hydration continue Zosyn and Flagyl serial abdominal examination surgical consultation Code(s): K55.9 - VASCULAR DISORDER OF INTESTINE, UNSPECIFIED
[2019-06-10] MEDS: PIPERACILLIN/TAZOB 3.375 GM 3.375 GM in DEXTROSE 5%-WATER - 50 ML IVPB SCH (18:04)
[2019-06-10 18:09] LABS: HEMATOCRIT 41.4 % (35.4-49); HEMOGLOBIN 14.1 GM/dL (11.7-16.9); MCH 29.8 pg (25.7-33.7); MCHC 33.9 g/dl (32.0-35.9); MEAN CELL VOLUME 87.9 fl (80-96); MEAN PLT VOLUME 7.8 fl (7.5-11.1); PLATELET COUNT 300 K/MM3 (134-434); RBC 4.71 M/mm3 (4.00-5.60); RDW 13.1 % (11.9-15.9)
[2019-06-10 18:27] LABS: BLOOD UREA NITROGEN 14.8 mg/dL (7-18); CALCIUM 8.6 mg/dL (8.5-10.1); CREATININE 1.3 mg/dL (0.55-1.3)
[2019-06-10 18:34] VITALS: BMI 31.6
[2019-06-10 20:03] LABS: URINE UREA NITROGEN 277 mg/dL (350-1000)
--- NOTE | 2019-06-10 22:07 | CONSULT ---
- Consultation REQUESTING PROVIDER: Mario FERNANDES CONSULT REQUEST: We have been asked to surgically evaluate this patient for abdominal pain PCP:Sergey Fernández HISTORY OF PRESENT ILLNESS:The patient is a 54 year old male who presented to the [facility] ED w/ abdominal pain. The patient reports that he had surgery on (06/07/19) under local w/IV sedation and was told not to eat any red meat. Patient reports that he had 10/10 diffuse abdominal pain 06/09/19 after eating meat with associated nausea and diaphoresis. He has history of incomplete evacuation, pellet like stool and abdominal bloating. A dx. w/u was done and he was given an enema in the ED w/what he reports as passage of a large amount of stool and air; he states he feels better. PMHx: melanoma of the thumb PSHx: excision melanoma of the thumb. Home Medications Medication Instructions Recorded NK [No Known Home Medication] 06/10/19 Allergies Allergy/AdvReac Type Severity Reaction Status Date / Time No Known Allergies Allergy Verified 06/10/19 03:04 REVIEW OF SYSTEMS: CONSTITUTIONAL: Absent: fever, chills, diaphoresis, generalized weakness, malaise, loss of appetite, weight change CARDIOVASCULAR: Absent: chest pain, syncope, palpitations, irregular heart rate, lightheadedness , peripheral edema RESPIRATORY: Absent: cough, shortness of breath, dyspnea with exertion, wheezing, stridor, hemoptysis GASTROINTESTINAL: Present: abdominal pain, abdominal distension, nausea, vomiting, constipation, GENITOURINARY: Absent: dysuria, frequency, urgency, hesitancy, hematuria, flank pain, genital pain MUSCULOSKELETAL: Absent: myalgia, arthralgia, joint swelling, back pain, neck pain SKIN: Absent: rash, itching, pallor HEMATOLOGIC/IMMUNOLOGIC: Absent: easy bleeding, easy bruising, lymphadenopathy NEUROLOGIC: Absent: headache, focal weakness, paresthesias, dizziness, unsteady gait, seizure, mental status changes, bladder or bowel incontinence PSYCHIATRIC: Absent: anxiety, depression, suicidal or homicidal ideation, hallucinations. PHYSICAL EXAM: GENERAL: Awake, alert, and fully oriented, in no acute distress. HEAD: Normal with no signs of trauma. EYES: sclera anicteric, conjunctiva clear. NECK: Normal ROM, supple without lymphadenopathy, JVD, or masses. ABDOMEN: Soft, nontender, slightly distended and tympanitic, normoactive bowel sounds, no guarding, no rebound, no masses. No organomegaly. No hernias. MUSCULOSKELETAL: Normal ROM at all joints. No bony deformities or tenderness. No CVA tenderness. UPPER EXTREMITIES: 2+ pulses, warm, well-perfused. No cyanosis. Cap refill <2 seconds. No peripheral edema. Dressing right thumb. LOWER EXTREMITIES: 2+ pulses, warm, well-perfused. No calf tenderness. No peripheral edema. NEUROLOGICAL: Normal speech, gait not observed. PSYCH: Cooperative. Good eye contact. Appropriate mood and affect. SKIN: Warm, dry, normal turgor, no rashes or lesions noted. Vital Signs Temperature 99.1 F 06/10/19 21:18 Pulse Rate 84 06/10/19 18:00 Respiratory Rate 18 06/10/19 18:00 Blood Pressure 137/85 06/10/19 18:00 O2 Sat by Pulse Oximetry (%) 95 06/10/19 15:55 Lab Results WBC 18.0 K/mm3 (4.0-10.0) H 06/10/19 17:28 RBC 4.71 M/mm3 (4.00-5.60) 06/10/19 17:28 Hgb 14.1 GM/dL (11.7-16.9) 06/10/19 17:28 Hct 41.4 % (35.4-49) 06/10/19 17:28 MCV 87.9 fl (80-96) 06/10/19 17:28 MCHC 33.9 g/dl (32.0-35.9) 06/10/19 17:28 RDW 13.1 % (11.9-15.9) 06/10/19 17:28 Plt Count 300 K/MM3 (134-434) 06/10/19 17:28 Sodium 136 mmol/L (136-145) 06/10/19 17:28 Potassium 4.0 mmol/L (3.5-5.1) 06/10/19 17:28 Chloride 101 mmol/L (98-107) 06/10/19 17:28 Carbon Dioxide 29 mmol/L (21-32) 06/10/19 17:28 Anion Gap 6 MMOL/L (8-16) L 06/10/19 17:28 BUN 14.8 mg/dL (7-18) 06/10/19 17:28 Creatinine 1.3 mg/dL (0.55-1.3) 06/10/19 17:28 Random Glucose 140 mg/dL (74-106) H 06/10/19 17:28 Calcium 8.6 mg/dL (8.5-10.1) 06/10/19 17:28 Blood Type A POSITIVE 06/10/19 11:00 Antibody Screen Negative 06/10/19 06:20 INR 0.98 (0.83-1.09) 06/10/19 06:20 CT a/p reviewed; ? colitis and large amount of stool and cannot r/o lesion at rectosigmoid junction. IMP: ?colitis ? of ?? origin and constipation; no evidence of an acute surgical abdomen. PLAN: Suggest NPO/IVF/IVABS/GI eval for reccomendations; will f/u. Will eventually need colonoscopy. Luiz Morales MD FACS
[2019-06-11] MEDS ORDERED: DEXTROSE 5%-WATER - 50 ML IVPB ONE ×3 (00:45→17:22)
[2019-06-11] MEDS ORDERED: PIPERACILLIN/TAZOBACTAM 3.375 GM VIAL IVPB ONE ×3 (00:45→17:22)
[2019-06-11] MEDS: HYDROmorphone HCl 2 MG/ML VIAL IVPB PRN (02:11)
[2019-06-11] MEDS: PIPERACILLIN/TAZOB 3.375 GM 3.375 GM in DEXTROSE 5%-WATER - 50 ML IVPB SCH ×3 (02:11→17:27)
[2019-06-11] MEDS ORDERED: ACETAMINOPHEN 325 MG TABLET (FP) PO ONE (02:52)
[2019-06-11] MEDS: DEXTROSE 5%-LACTATED RINGERS 1,000 ML IV SCH ×2 (03:26→17:26)
[2019-06-11] MEDS: HEPARIN NA (PORCINE) 5,000 UNITS/ML 1ML VIAL SQ SCH (06:33)
--- NOTE | 2019-06-11 08:26 | CONSULT ---
Consultation: HEMATOLOGY/ONCOLOGY CONSULTATION THIS IS A DRAFT, WILL DISCUSS WITH DR. CHEN REQUESTING PROVIDER: Dr. Martin CONSULT REQUEST: We have been asked to medically evaluate this patient for history of melanoma and liver lesion. HISTORY OF PRESENT ILLNESS: This is a 54 year old, pleasant gentleman with a past medical history of hyperlipidemia, 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 who initially presented to the hospital for 1 day of severe 10/10 abdominal pain. He reports the pain in the left and right lower quadrants and reported it was associated with constipation. States that it occurred after he ate last night and is exacerbated by food. He took 1 senna at home, which did not alleviate the constipation or the pain. Denied any overt nausea/vomiting or diarrhea, fevers or chills, chest pain or shortness of breath. Overnight, patient reports one brisk, strong bowel movement that expectorated several drops of bright red blood. States that he has never had bloody bowel movements in the past. Recently had a resection of right thumb cyst on under anesthesia, has 16-[address]. Reports this cyst was near to where he had melanoma in-situ in the past. Denies pain, numbness or tingling in that finger. Reports that he had a PET scan in 2011 that showed a possible hemangioma in the liver, but he does not recall the size. Currently only complains of headache unresponsive to tylenol. Allergies: mold, dander Caffeine: current everyday drinker Surgeries: Excision of in-situ melanoma of R thumb (2011) Colonoscopy: last colonoscopy was 2008, few polyps were removed Family Hx: father had [place] in 2006, mother healthy, 2 healthy children, 1 brother with bipolar depression, 1 sister healthy Occupation: general litigation utility system repairer Home Oncologist: Dr. Jaspal Chu at [facility] REVIEW OF SYSTEMS: CONSTITUTIONAL: Absent: fever, chills, diaphoresis, generalized weakness, malaise, loss of appetite, weight change HEENT: Absent: rhinorrhea, nasal congestion, throat pain, throat swelling, difficulty swallowing, mouth swelling, ear pain, eye pain, visual changes CARDIOVASCULAR: Absent: chest pain, syncope, palpitations, irregular heart rate, lightheadedness , peripheral edema RESPIRATORY: Absent: cough, shortness of breath, dyspnea with exertion, orthopnea, wheezing, stridor, hemoptysis GASTROINTESTINAL:abdominal pain Absent: abdominal distension, nausea, vomiting, diarrhea, constipation, melena, hematochezia GENITOURINARY: Absent: dysuria, frequency, urgency, hesitancy, hematuria, flank pain, genital pain MUSCULOSKELETAL: Absent: myalgia, arthralgia, joint swelling, back pain, neck pain SKIN: Absent: rash, itching, pallor HEMATOLOGIC/IMMUNOLOGIC: Absent: easy bleeding, easy bruising, lymphadenopathy, frequent infections ENDOCRINE: Absent: unexplained weight gain, unexplained weight loss, heat intolerance, cold intolerance NEUROLOGIC: Absent: headache, focal weakness or paresthesias, dizziness, unsteady gait, seizure, mental status changes, bladder or bowel incontinence PSYCHIATRIC: Absent: anxiety, depression, suicidal or homicidal ideation, hallucinations. PHYSICAL EXAMINATION Vital Signs - 24 hr 06/10/19 06/10/19 06/10/19 10:00 14:03 15:55 Temperature 98.6 F 98.8 F Pulse Rate 76 Pulse Rate [ 94 H 76 Right Radial] Respiratory 18 Rate Blood Pressure 146/89 Blood Pressure 144/89 138/84 [Right Arm] O2 Sat by Pulse 100 100 95 Oximetry (%) 06/10/19 06/10/19 06/11/19 18:00 21:18 02:00 Temperature 98.8 F 99.1 F 98.5 F Pulse Rate 84 88 Pulse Rate [ Right Radial] Respiratory 18 18 Rate Blood Pressure 137/85 150/96 Blood Pressure [Right Arm] O2 Sat by Pulse Oximetry (%) 06/11/19 02:59 Temperature Pulse Rate 88 Pulse Rate [ Right Radial] Respiratory 18 Rate Blood Pressure 135/91 Blood Pressure [Right Arm] O2 Sat by Pulse Oximetry (%) GENERAL: A&Ox3 in no acute distress EYES: PERRL, EOMI ENT: Moist mucus membranes, oropharynx without exudates NECK: No lymphadenopathy or masses palpated LUNGS: CTA, no wheezes or rhales HEART: RRR, no murmurs ABDOMEN: Soft, mildly tender to palpation in hypogastrum, bowel sounds present but diminished, no rebound, no hepatosplenomegaly UPPER EXTREMITIES: 2+ pulses, R thumbnail removed, sutures in place, s/p cyst resection, no residual edema or purulence noted LOWER EXTREMITIES: 2+ pulses, no edema NEUROLOGICAL: Cranial nerves II-XII intact. Normal speech. Normal gait. PSYCHIATRIC: Cooperative. Good eye contact. Appropriate mood and affect. SKIN: No rashes, no concerning lesions noted - 1 mildly erythematous papular lesion on lateral L calf patient noted - 2-3mm in diameter without any border irregularities RECTAL: No external or internal hemorrhoids or nodules/masses palpated, no blood noticed during exam TESTICULAR: normal testicular exam without tenderness or masses palpated BREAST: No nodules or masses palpated, small accessory nipple noted 2-3 inches under R nipple Laboratory Results - last 24 hr 06/10/19 06/10/19 06/10/19 06:20 06:20 08:14 WBC RBC Hgb Hct MCV MCH MCHC RDW Plt Count MPV Sodium Potassium Chloride Carbon Dioxide Anion Gap BUN Creatinine Est GFR (CKD-EPI)AfAm Est GFR (CKD-EPI)NonAf Random Glucose Lactic Acid 2.5 H* Calcium Creatine Kinase 62 Ur Random Creatinine Ur Random Sodium Ur Random Potassium Ur Random Chloride Ur Random Urea Nitrogn Stool Occult Blood Blood Type A POSITIVE Antibody Screen Negative 06/10/19 06/10/19 06/10/19 11:00 12:30 13:30 WBC RBC Hgb Hct MCV MCH MCHC RDW Plt Count MPV Sodium Potassium Chloride Carbon Dioxide Anion Gap BUN Creatinine Est GFR (CKD-EPI)AfAm Est GFR (CKD-EPI)NonAf Random Glucose Lactic Acid 2.1 H Calcium Creatine Kinase Ur Random Creatinine Ur Random Sodium Ur Random Potassium Ur Random Chloride Ur Random Urea Nitrogn Stool Occult Blood Positive Blood Type A POSITIVE Antibody Screen 06/10/19 06/10/19 06/10/19 17:28 17:28 18:00 WBC 18.0 H RBC 4.71 Hgb 14.1 Hct 41.4 MCV 87.9 MCH 29.8 MCHC 33.9 RDW 13.1 Plt Count 300 MPV 7.8 Sodium 136 Potassium 4.0 Chloride 101 Carbon Dioxide 29 Anion Gap 6 L BUN 14.8 Creatinine 1.3 Est GFR (CKD-EPI)AfAm 70.69 Est GFR (CKD-EPI)NonAf 60.99 Random Glucose 140 H Lactic Acid Calcium 8.6 Creatine Kinase Ur Random Creatinine Cancelled Ur Random Sodium Ur Random Potassium Ur Random Chloride Ur Random Urea Nitrogn Stool Occult Blood Blood Type Antibody Screen 06/10/19 06/10/19 18:00 18:00 WBC RBC Hgb Hct MCV MCH MCHC RDW Plt Count MPV Sodium Potassium Chloride Carbon Dioxide Anion Gap BUN Creatinine Est GFR (CKD-EPI)AfAm Est GFR (CKD-EPI)NonAf Random Glucose Lactic Acid Calcium Creatine Kinase Ur Random Creatinine 28.0 L Ur Random Sodium 64 Ur Random Potassium < 9.0 L Ur Random Chloride 57 L Ur Random Urea Nitrogn Cancelled 277 L Stool Occult Blood Blood Type Antibody Screen Active Medications Generic Name Dose Route Start Last Admin Trade Name Freq PRN Reason Stop Dose Admin Acetaminophen/Butalbital/Caffeine 1 tablet 06/11/19 08:23 Fioricet - PO 06/11/19 08:24 ONCE ONE Heparin Sodium (Porcine) 5,000 unit 06/10/19 06:00 06/11/19 06:33 Heparin - SQ 5,000 unit TID CASTRO Administration Hydromorphone HCl 1 mg 06/10/19 04:37 06/11/19 02:11 Dilaudid Vial - IVPB 1 mg Q4H PRN Administration PAIN LEVEL 6-10 Dextrose/Lactated Ringer's 1,000 mls @ 200 mls/hr 06/10/19 10:45 06/11/19 03: 26 D5-Lr - IV 06/12/19 15:44 200 mls/hr ASDIR CASTRO Administration Piperacillin Sod/Tazobactam 50 mls @ 100 mls/hr 06/10/19 18:00 06/11/19 02:11 Sod 3.375 gm/ Dextrose IVPB 100 mls/hr Q8H-IV CASTRO Administration Protocol ASSESSMENT/PLAN: 54 year old, pleasant gentleman with a past medical history of hyperlipidemia, 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 who initially presented to the hospital for 1 day of severe 10/10 abdominal pain, admitted for the treatment of colitis #Acute Colitis #Liver Lesion #Headache #Hx of Melanoma in-situ #Hyperlipidemia #Leukocytosis #Acute Colitis: likely secondary to constipation component of stercoral colitis ; bloody BM overnight could be related to fecal impaction and fissures, however patient's last colonoscopy was in 2008 and he has liver lesion -continue NPO, advance diet per GI/primary -zosyn, flagyl -fluids, recommend lactated ringers -pain control -will need colonoscopy to assess for colonic neoplasms after acute symptoms resolve, likely outpatient workup #Liver Lesion: unclear etiology at this time, patient states he had both CT and PET scan performed in 2012 after resection of melanoma in-situ of R thumb -obtained report of CT in 2012: 1.9x2.1 cm hypodensity in right lobe of the liver that does not represent a simple cyst. Could not be characterized without intravenous contrast. Contrast enhanced MRI was recommended -PET scan 2012: peripherally faintly enhancing right lobe liver hypodensity without FDG activity, favoring a benign lesion, hemangioma is suspected (1.8 x 1.6cm) -will need a contrast enhanced MRI to further characterize the lesion, can be done outpatient -will need repeat colonoscopy as last one was 10 years ago -patient's oncologic surgeon is Dr. Jaspal Chu at [facility] -will obtain records from his prior scans #Headache: patient is chronic caffeine user, reports frontal headache and around bilateral eyes; could be caffeine withdrawal headache -trial of fioricet, containing acetaminopen, barbiturate, and caffeine, worked and patient's headache improved #Leukocytosis: 2/2 acute colitis -treat colitis with abx and fluids #Prophylaxis -on heparin prophylaxis #Disposition -monitor on med-surg Heri Morris, PGY3 Discussed with Dr. Chen Visit type - Emergency Visit Emergency Visit: No - New Patient This patient is new to me today: Yes Date on this admission: 06/11/19 - Critical Care Critical Care patient: No ATTENDING PHYSICIAN STATEMENT I saw and evaluated the patient. I reviewed the resident's note and discussed the case with the resident. I agree with the resident's findings and plan as documented. SUBJECTIVE: OBJECTIVE: ASSESSMENT AND PLAN:
[2019-06-11] MEDS ORDERED: ACETAMINOPHEN/CAFFEINE/BUTALBITAL 1 TAB PO ONE (08:45)
--- NOTE | 2019-06-11 10:09 | PN ---
Progress Note, Physician History of Present Illness: still continues to have abd pain - Current Medication List Current Medications: Active Medications Heparin Sodium (Porcine) (Heparin -) 5,000 unit SQ TID CASTRO Last Admin: 06/11/19 06:33 Dose: 5,000 unit Hydromorphone HCl (Dilaudid Vial -) 1 mg IVPB Q4H PRN PRN Reason: PAIN LEVEL 6-10 Last Admin: 06/11/19 02:11 Dose: 1 mg Dextrose/Lactated Ringer's (D5-Lr -) 1,000 mls @ 200 mls/hr IV ASDIR CASTRO Stop: 06/12/19 15:44 Last Admin: 06/11/19 03:26 Dose: 200 mls/hr Piperacillin Sod/Tazobactam (Sod 3.375 gm/ Dextrose) 50 mls @ 100 mls/hr IVPB Q8H-IV CASTRO; Protocol Last Admin: 06/11/19 09:05 Dose: 100 mls/hr - Objective Vital Signs: Vital Signs Temperature 98.5 F 06/11/19 02:00 Pulse Rate 88 06/11/19 02:59 Respiratory Rate 18 06/11/19 02:59 Blood Pressure 135/91 06/11/19 02:59 O2 Sat by Pulse Oximetry (%) 95 06/10/19 15:55 Constitutional: Yes: Calm, Mild Distress Cardiovascular: Yes: Regular Rate and Rhythm Respiratory: Yes: Regular, CTA Bilaterally Gastrointestinal: Yes: Soft, Hypoactive Bowel Sounds Musculoskeletal: Yes: WNL Extremities: Yes: WNL Neurological: Yes: Alert, Oriented Psychiatric: Yes: Alert, Oriented Labs: CBC, BMP 06/10/19 17:28 06/10/19 17:28 INR, PTT INR 0.98 (0.83-1.09) 06/10/19 06:20 Assessment/Plan Problem List - Problems (1) Ischemic colitis Code(s): K55.9 - VASCULAR DISORDER OF INTESTINE, UNSPECIFIED abd pain leukocytosis plan continue current mgmt repeat blood count rest as per surgery gi and team
[2019-06-11 10:37] LABS: BASO % 0.4 % (0-2.0); HEMATOCRIT 39.7 % (35.4-49); HEMOGLOBIN 13.4 GM/dL (11.7-16.9); LYMPH % 14.4 % (8-40); MCH 29.6 pg (25.7-33.7); MCHC 33.7 g/dl (32.0-35.9); MEAN CELL VOLUME 87.8 fl (80-96); MEAN PLT VOLUME 7.7 fl (7.5-11.1); MONO % 8.6 % (3.8-10.2); NEUT % 74.6 % (42.8-82.8); PLATELET COUNT 276 K/MM3 (134-434); RBC 4.52 M/mm3 (4.00-5.60); RDW 13.1 % (11.9-15.9); WHITE BLOOD COUNT 13.3 K/mm3 (4.0-10.0)
[2019-06-11 10:57] LABS: BLOOD UREA NITROGEN 9.2 mg/dL (7-18); CALCIUM 8.4 mg/dL (8.5-10.1); CREATININE 1.2 mg/dL (0.55-1.3); POTASSIUM 3.9 mmol/L (3.5-5.1)
--- NOTE | 2019-06-11 12:44 | PN.GI ---
GI Progress Note Subjective: Pt seen/examined at bedside, feeling better, abdominal pain improved following bm. Denies n/v. States he had hard bm yesterday and today with small amount of bright blood. Last colonoscopy in 2008. - Objective Vital Signs: Vital Signs Temperature 99 F 06/11/19 10:00 Pulse Rate 75 06/11/19 10:00 Respiratory Rate 06/11/19 10:00 Blood Pressure 142/94 06/11/19 10:00 O2 Sat by Pulse Oximetry (%) 95 06/10/19 15:55 Constitutional: Well Nourished, No Distress, Calm Cardiovascular: Yes: WNL, Regular Rate and Rhythm Respiratory: Yes: WNL, Regular, CTA Bilaterally ...Palpate: Yes: Other (Abd soft, nontender, nondistended Rectal: scant bright blood mixed with brown stool, no obvious external hemorrhoid) Labs: CBC, BMP 06/11/19 09:50 06/11/19 09:50 INR, PTT INR 0.98 (0.83-1.09) 06/10/19 06:20 Assessment/Plan 54yo male h/o hyperlipidemia, melanoma s/p excision (thumb) in 2011, recent thumb surgery last week presents with abdominal pain with CT imaging revealing thickening at sigmoid and left colon also with 3x2cm right hepatic lobe lesion. Clinically improving with downtrending wcc. Episode of BRBPR noted in setting of hard stools. Hb stable. Exact etiology unclear ?stercoral colitis vs ischemic vs inflammatory vs malignancy, less likely infectious. Bleeding possibly hemorrhoidal. Last colonoscopy in 2008 and pt states he was due to follow up in [place] for repeat exam. -Recommend monitoring Hb and for further bleeding -Continue IV antibiotics per ID -Start clear liquid diet -Miralax daily for constipation -Avoid/mimimize narcotics if possible -MRI liver to further evaluate lesion seen on CT -Follow up heme/onc recommendations -Pt will require colonoscopy once further clinically improved
--- NOTE | 2019-06-11 12:50 | PN ---
Teaching Attending Note Name of Resident: Pat Schmidt ATTENDING PHYSICIAN STATEMENT I saw and evaluated the patient. I reviewed the resident's note and discussed the case with the resident. I agree with the resident's findings and plan as documented. SUBJECTIVE: No fever or chills. He feels better. Luciano no N/V. Abd pain is better. had Big BM before the enema then after the enema yesterday. was bloody yesterday and again this am with BRBPR. OBJECTIVE: NAD , awake ,alert , oriented. MMM, no LAP in neck CV: RRR, NO MRG Lungs:CTAB Abd:soft, minimal TTP in LLQ, ND , NL BS. no hepatomegaly Ext : No edema, no erythema. R thump lacking nail. has stitches with dry clean intact skin and no discharge No lymphadenopathy in R axilla. ASSESSMENT AND PLAN: 54 y/o man with h/o HLP, melanoma resection in L thumb 2011, with 2 subsequent surgeries for cyst removal,last 06/07/19. He presented with abd pain and was found to have colitis 1- Colitis: possible ischemic colitis from constipation and suspected stercoral ulcer. can't r/o infectious colitis. ? colon cancer/Mets. NO signs of perforation . bloody BM might indicate ischemia vs hemorrhoidal bleed in setting of constipation reprots constipation after his sx on 06/07 - clinically improved - cont IVF - start clears - repeat H&H later today -Timing of colonoscopy per GI - cont zosyn - if diarrhea , will send stool studies 2- CHRISTIANNE: likely due to prerenal azotemia, as it improved with IVF, despite FENA of 2.2 %. - monitor with IVF - might decrease IVF in am 3- Hepatic lesion . increased in size compared to 2012 CT scan. He never received MRI to that area as out pt . per him PET scan showed a lesion there, but he did not follow up - this lesion could be benign or malignant given his melanoma history . - need further w/u with triple phase MRI and may be repeating PET as out patient. - patient was made aware of the need to follow up with his oncologist - pathology of the resected lesion form thumb on 06/07/19 is pending 4- H/o melanoma on L thumb, s/p resection in 2011 with 2 subsequent resections No lymphadenopathy in axilla. Bx results pending as out pt . 5- DVT PX: dc heparin given minimal bleed start Scds
--- NOTE | 2019-06-11 13:22 | PN ---
Progress Note (short form) - Note Progress Note: Surgery Patient seen and examined at bedside, states he has little to no abdominal pain. He reports having two small, formed BMs both last night and this morning with bright red blood streaked throughout. He states he is feeling hungry and denies any new or worsening symptoms including Fever, chills, N/V CP or SOB. Vital Signs Temp 99 F 06/11/19 10:00 Pulse 75 06/11/19 10:00 Resp 19 06/11/19 10:00 BP 142/94 06/11/19 10:00 Pulse Ox 95 06/10/19 15:55 Intake & Output 06/10/19 06/11/19 06/11/19 23:59 11:59 23:59 Intake Total 500 3100 Balance 500 3100 Weight 202 lb 6.4 oz Intake: IV 400 3000 D5-Lr - 1,000 ml @ 380 935 0979 mls/hr IV ASDIR CASTRO Rx#: [id number] IVPB 100 100 Other: Voiding Method Toilet # Unmeasured Voids Void 2 2 Bowel Movement Yes # Bowel Movements 1 Height 5 ft 7 in Body Mass Index (BMI) 31.6 Weight Measurement Method Standing Scale CBC, BMP 06/11/19 09:50 06/11/19 09:50 PE: A&Ox3, NAD Unlabored resp on RA ABD: soft, supple with normoactive sounds. mild TTP at LLQ , no guarding, rebound palpable masses. Problem List - Problems (1) Colitis Assessment/Plan: Exact etiology unclear ?stercoral colitis vs ischemic vs inflammatory vs malignancy, less likely infectious. Bleeding possibly hemorrhoidal. Last colonoscopy in 2008 and pt states he was due to follow up in [place] for repeat exam. -trend H&H for further bleeding - IV antibiotics per ID -clear liquid diet as tolerated -bowel regime -Avoid/mimimize narcotics if possible - Serial abdominal exams -Surgery to follow Code(s): K52.9 - NONINFECTIVE GASTROENTERITIS AND COLITIS, UNSPECIFIED
[2019-06-11] MEDS ORDERED: ACETAMINOPHEN 650 MG/20.3 ML ORAL SOLUTION (CUPS) PO PRN (15:06)
[2019-06-11 17:01] LABS: HEMOGLOBIN 13.7 GM/dL (11.7-16.9); MCH 29.4 pg (25.7-33.7); MCHC 33.3 g/dl (32.0-35.9); MEAN CELL VOLUME 88.2 fl (80-96); MEAN PLT VOLUME 7.6 fl (7.5-11.1); PLATELET COUNT 307 K/MM3 (134-434); RBC 4.64 M/mm3 (4.00-5.60); RDW 13.1 % (11.9-15.9); WHITE BLOOD COUNT 13.7 K/mm3 (4.0-10.0)
--- NOTE | 2019-06-11 19:10 | PN ---
Physical Exam: SUBJECTIVE: Patient seen and examined. Patient complained of persistent headache despite tylenol therapy but denied any floaters or visual changes. he had multiple blood tinged BM with one gassy BM with NO pain. OBJECTIVE: No acute distress Vital Signs Period Temp Pulse Resp BP Sys/Benites Pulse Ox Last 24 Hr 98.5 F-99.6 F 75-88 18-20 135-154/91-96 GENERAL: The patient is awake, alert, and fully oriented, in no acute distress. HEAD: Normal with no signs of trauma. ENT: slightly dry mucous membranes. NECK: Trachea midline, full range of motion, supple. LUNGS: Breath sounds equal, clear to auscultation bilaterally, no wheezes, no crackles, no accessory muscle use. HEART: Regular rate and rhythm, S1, S2 without murmur, rub or gallop. ABDOMEN: Soft, tenderness in the lower abdomen without guarding or rebound tenderness, nondistended, normoactive bowel sounds, no hepatosplenomegaly, no masses. EXTREMITIES: 2+ pulses, warm, well-perfused, no edema. Laboratory Results - last 24 hr 06/10/19 06/10/19 06/10/19 18:00 18:00 18:00 WBC RBC Hgb Hct MCV MCH MCHC RDW Plt Count MPV Absolute Neuts (auto) Neutrophils % Lymphocytes % Monocytes % Eosinophils % Basophils % Nucleated RBC % Sodium Potassium Chloride Carbon Dioxide Anion Gap BUN Creatinine Est GFR (CKD-EPI)AfAm Est GFR (CKD-EPI)NonAf Random Glucose Lactic Acid Calcium Ur Random Creatinine Cancelled 28.0 L Ur Random Sodium 64 Ur Random Potassium < 9.0 L Ur Random Chloride 57 L Ur Random Urea Nitrogn Cancelled 277 L 06/11/19 06/11/19 06/11/19 09:50 09:50 09:50 WBC 13.3 H RBC 4.52 Hgb 13.4 Hct 39.7 MCV 87.8 MCH 29.6 MCHC 33.7 RDW 13.1 Plt Count 276 MPV 7.7 Absolute Neuts (auto) 9.9 H Neutrophils % 74.6 Lymphocytes % 14.4 D Monocytes % 8.6 Eosinophils % 2.0 D Basophils % 0.4 Nucleated RBC % 0 Sodium 139 Potassium 3.9 Chloride 106 Carbon Dioxide 27 Anion Gap 6 L BUN 9.2 Creatinine 1.2 Est GFR (CKD-EPI)AfAm 77.88 Est GFR (CKD-EPI)NonAf 67.19 Random Glucose 106 Lactic Acid 1.0 Calcium 8.4 L Ur Random Creatinine Ur Random Sodium Ur Random Potassium Ur Random Chloride Ur Random Urea Nitrogn 06/11/19 16:30 WBC 13.7 H RBC 4.64 Hgb 13.7 Hct 41.0 MCV 88.2 MCH 29.4 MCHC 33.3 RDW 13.1 Plt Count 307 MPV 7.6 Absolute Neuts (auto) Neutrophils % Lymphocytes % Monocytes % Eosinophils % Basophils % Nucleated RBC % Sodium Potassium Chloride Carbon Dioxide Anion Gap BUN Creatinine Est GFR (CKD-EPI)AfAm Est GFR (CKD-EPI)NonAf Random Glucose Lactic Acid Calcium Ur Random Creatinine Ur Random Sodium Ur Random Potassium Ur Random Chloride Ur Random Urea Nitrogn Active Medications Generic Name Dose Route Start Last Admin Trade Name Freq PRN Reason Stop Dose Admin Acetaminophen 650 mg 06/11/19 15:06 06/11/19 17:31 Tylenol Oral Solution - PO 650 mg Q6H PRN Administration PAIN Dextrose/Lactated Ringer's 1,000 mls @ 200 mls/hr 06/10/19 10:45 06/11/19 17: 26 D5-Lr - IV 06/12/19 15:44 Not Given ASDIR CASTRO Piperacillin Sod/Tazobactam 50 mls @ 100 mls/hr 06/10/19 18:00 06/11/19 17:27 Sod 3.375 gm/ Dextrose IVPB 100 mls/hr Q8H-IV CASTRO Administration Protocol Polyethylene Glycol 17 gm 06/12/19 10:00 Miralax (For Daily Use) - PO DAILY CASTRO ASSESSMENT/PLAN: # Colitis 2/2 ischemia from constipation or stercoral ulcer Abdominal Xray 2 views retained contrast in the cecum through the splenic flexure. cecal bascule. contrast in appendix. some air retention in the small bowel loops. No sign of free air. Patient is doing better clinically. Trend H&H which is stable at 13.7 and 41 for Hb and Hct respectively Continue IVF will evaluate in the morning for potential decrease in fluid administered we d/c the NPO and started clear liquid diet which is being well tolerated Continue Zosyn. Flagyl d/c Miralax added to assist with bowel movement. Patient has been placed on tylenol instead of dilaudid to decrease exposure to narcotics in setting of colitis Serial abdominal exam with most recent one showing improvement in pain and tenderness. Follow up with GI when appropriate for colonoscopy. CHRISTIANNE 2/2 prerenal azotemia with response to fluids despite FeNA of 2.2 continue and monitor with IV fluids. Hepatic Lesion benign or malignant with hx of melanoma heme oncology on board triphasic MRI for further evaluation DVT PPX D/C heparin due to GI bleeding and substituted with SCD for PPX Problem List - Problems (1) Colitis Code(s): K52.9 - NONINFECTIVE GASTROENTERITIS AND COLITIS, UNSPECIFIED (2) Ischemic colitis Code(s): K55.9 - VASCULAR DISORDER OF INTESTINE, UNSPECIFIED Visit type - Emergency Visit Emergency Visit: Yes ED Registration Date: 06/10/19 Care time: The patient presented to the Emergency Department on the above date and was hospitalized for further evaluation of their emergent condition. - New Patient This patient is new to me today: Yes Date on this admission: 06/11/19 - Critical Care Critical Care patient: No ATTENDING PHYSICIAN STATEMENT I saw and evaluated the patient. I reviewed the resident's note and discussed the case with the resident. I agree with the resident's findings and plan as documented. SUBJECTIVE: OBJECTIVE: ASSESSMENT AND PLAN:
--- NOTE | 2019-06-11 23:41 | PN ---
Teaching Attending Note Name of Resident: Heri Morris ATTENDING PHYSICIAN STATEMENT I saw and evaluated the patient. I reviewed the resident's note and discussed the case with the resident. I agree with the resident's findings and plan as documented. ASSESSMENT AND PLAN: 54 y/o patient with HTN, HLD, admitted with colitis, now with 3.3 x 2cm right hepatic lobe lesion admitted with colitis. On antibiotics/fluids. h/o melanoma in situ s/p resection 2011 Rt. hepatic lobe lesion present previously on PE CT but was nt PET avid Will consider MRI with contrast as outpatient and GI f/u and colonoscopy as outpatient will follow
[2019-06-12] MEDS ORDERED: PIPERACILLIN/TAZOBACTAM 3.375 GM VIAL IVPB ONE ×3 (00:21→17:16)
[2019-06-12] MEDS ORDERED: DEXTROSE 5%-WATER - 50 ML IVPB ONE ×3 (00:21→17:17)
[2019-06-12] MEDS: PIPERACILLIN/TAZOB 3.375 GM 3.375 GM in DEXTROSE 5%-WATER - 50 ML IVPB SCH ×3 (01:09→17:22)
--- NOTE | 2019-06-12 08:05 | PN ---
Progress Note (short form) - Note Progress Note: Pt seen and examined. Reports he is feeling well. Abdominal pain has subsided. Tolerating clears, passing flatus, reports "normal" BM yesteday. Has been oob without issue. Denies cp/sob, n/v/d. Vital Signs Temp 98.9 F 06/12/19 06:00 Pulse 79 06/12/19 06:00 Resp 20 06/12/19 06:00 BP 133/91 06/12/19 06:00 Pulse Ox 95 06/10/19 15:55 Intake & Output 06/11/19 06/11/19 06/12/19 11:59 23:59 11:59 Intake Total 3150 50 50 Balance 3150 50 50 Intake: IV 3000 D5-Lr - 1,000 ml @ 200 3000 mls/hr IV ASDIR CASTRO Rx#: [id number] IVPB 150 50 50 Other: Voiding Method Toilet Toilet # Unmeasured Voids Void 2 3 Bowel Movement No No Gen: awake, alert, nad Resp: unabored on RA Abdo: soft, nt/nd, no rebound or guarding, +bowel sounds A/P: 54 y/o M w/ PMHx HLD, L thumb melanoma (s/p recent surgical incision), RBBB , admitted 06/09 with diffuse abdominal pain CT with ?? colitis and large amount of stool and cannot r/o lesion at rectosigmoid junction. No Abdo pain this AM Tolerating clears, requesting more food, requesting to go home VSS AM labs pending -Diet advanced to regular -trend H&H for further bleeding -IV antibiotics per ID -bowel regimen -Avoid/mimimize narcotics if possible -Serial abdominal exams -Surgery to follow d/w attending Dr Morales
[2019-06-12 08:07] LABS: BASO % 0.4 % (0-2.0); EOS % 2.3 % (0-4.5); HEMATOCRIT 40.4 % (35.4-49); HEMOGLOBIN 13.7 GM/dL (11.7-16.9); LYMPH % 17.8 % (8-40); MCH 29.8 pg (25.7-33.7); MCHC 33.8 g/dl (32.0-35.9); MEAN CELL VOLUME 88.3 fl (80-96); MEAN PLT VOLUME 7.7 fl (7.5-11.1); MONO % 8.3 % (3.8-10.2); NEUT % 71.2 % (42.8-82.8); PLATELET COUNT 308 K/MM3 (134-434); RBC 4.58 M/mm3 (4.00-5.60); RDW 13.2 % (11.9-15.9); WHITE BLOOD COUNT 13.8 K/mm3 (4.0-10.0)
[2019-06-12 08:12] LABS: CALCIUM 8.6 mg/dL (8.5-10.1); CREATININE 1.4 mg/dL (0.55-1.3); POTASSIUM 4.1 mmol/L (3.5-5.1)
[2019-06-12] MEDS ORDERED: POLYETHYLENE GLYCOL 3350 119 GM BTL PO SCH (10:00)
--- NOTE | 2019-06-12 12:57 | PN ---
Progress Note, Physician History of Present Illness: patient stable doing well had good breakfast tolerating well - Current Medication List Current Medications: Active Medications Acetaminophen (Tylenol Oral Solution -) 650 mg PO Q6H PRN PRN Reason: PAIN Last Admin: 06/11/19 17:31 Dose: 650 mg Dextrose/Lactated Ringer's (D5-Lr -) 1,000 mls @ 200 mls/hr IV ASDIR CASTRO Stop: 06/12/19 15:44 Last Admin: 06/11/19 17:26 Dose: Not Given Piperacillin Sod/Tazobactam (Sod 3.375 gm/ Dextrose) 50 mls @ 100 mls/hr IVPB Q8H-IV CASTRO; Protocol Last Admin: 06/12/19 09:45 Dose: 100 mls/hr Polyethylene Glycol (Miralax (For Daily Use) -) 17 gm PO DAILY CASTRO Last Admin: 06/12/19 09:45 Dose: 17 grams - Objective Vital Signs: Vital Signs Temperature 98.6 F 06/12/19 09:45 Pulse Rate 98 H 06/12/19 09:45 Respiratory Rate 20 06/12/19 09:45 Blood Pressure 130/84 06/12/19 09:45 O2 Sat by Pulse Oximetry (%) 95 06/10/19 15:55 Constitutional: Yes: No Distress, Calm Cardiovascular: Yes: Regular Rate and Rhythm Respiratory: Yes: Regular, CTA Bilaterally Gastrointestinal: Yes: Normal Bowel Sounds, Soft Musculoskeletal: Yes: WNL Extremities: Yes: WNL Neurological: Yes: Alert, Oriented Psychiatric: Yes: Alert, Oriented Labs: CBC, BMP 06/12/19 06:50 06/12/19 06:50 INR, PTT INR 0.98 (0.83-1.09) 06/10/19 06:20 Assessment/Plan Problem List - Problems (1) Ischemic colitis Code(s): K55.9 - VASCULAR DISORDER OF INTESTINE, UNSPECIFIED abd pain leukocytosis liver tumor plan continue current mgmt wbc still high can be changed to oral augmentin for 5 more days rest as per the team
[2019-06-12 15:47] VITALS: BP 127/70; PULSE 82; TEMP 98.5
[2019-06-12] MEDS ORDERED: ACETAMINOPHEN 325 MG TABLET (FP) PO PRN (15:58)
[2019-06-12] MEDS ORDERED: LACTATED RINGERS SOLUTION 1,000 ML/1,000 ML INFUS.BAG IV SCH (16:00)
--- NOTE | 2019-06-12 16:09 | PN ---
Physical Exam: SUBJECTIVE: Patient seen and examined at bedside. No acute complaints. Has not had any abdominal pain. No nausea/vomiting/diarrhea. OBJECTIVE: Vital Signs Period Temp Pulse Resp BP Sys/Benites Pulse Ox Last 24 Hr 98.2 F-98.9 F 71-98 20-20 127-149/70-97 GENERAL: A&Ox3 in no acute distress EYES: PERRL, EOMI ENT: Moist mucus membranes, oropharynx without exudates NECK: No lymphadenopathy or masses palpated LUNGS: CTA, no wheezes or rhales HEART: RRR, no murmurs ABDOMEN: Soft, mildly tender to palpation in hypogastrum, bowel sounds present but diminished, no rebound, no hepatosplenomegaly EXTREMITIES: 2+ pulses, R thumbnail removed, sutures in place, s/p cyst resection, no residual edema or purulence noted NEUROLOGICAL: Cranial nerves II-XII intact. Normal speech. Normal gait. SKIN: No rashes, no concerning lesions noted - 1 mildly erythematous papular lesion on lateral L calf patient noted - 2-3mm in diameter without any border irregularities RECTAL: No external or internal hemorrhoids or nodules/masses palpated, no blood noticed during exam TESTICULAR: normal testicular exam without tenderness or masses palpated BREAST: No nodules or masses palpated, small accessory nipple noted 2-3 inches under R nipple Laboratory Results - last 24 hr 06/11/19 06/12/19 06/12/19 16:30 06:50 06:50 WBC 13.7 H 13.8 H RBC 4.64 4.58 Hgb 13.7 13.7 Hct 41.0 40.4 MCV 88.2 88.3 MCH 29.4 29.8 MCHC 33.3 33.8 RDW 13.1 13.2 Plt Count 307 308 MPV 7.6 7.7 Absolute Neuts (auto) 9.9 H Neutrophils % 71.2 Lymphocytes % 17.8 D Monocytes % 8.3 Eosinophils % 2.3 Basophils % 0.4 Nucleated RBC % 0 Sodium 142 Potassium 4.1 Chloride 106 Carbon Dioxide 29 Anion Gap 8 BUN 9.0 Creatinine 1.4 H Est GFR (CKD-EPI)AfAm 64.63 Est GFR (CKD-EPI)NonAf 55.77 Random Glucose 90 Calcium 8.6 Active Medications Generic Name Dose Route Start Last Admin Trade Name Freq PRN Reason Stop Dose Admin Acetaminophen 650 mg 06/12/19 15:58 Tylenol - PO Q6H PRN PAIN LEVEL 4 - 6 Piperacillin Sod/Tazobactam 50 mls @ 100 mls/hr 06/10/19 18:00 06/12/19 09:45 Sod 3.375 gm/ Dextrose IVPB 100 mls/hr Q8H-IV CASTRO Administration Protocol Lactated Ringer's 1,000 ml in 1,000 mls @ 75 mls/hr 06/12/19 16:00 Lactated Ringers Solution IV ASDIR CASTRO Polyethylene Glycol 17 gm 06/12/19 10:00 06/12/19 09:45 Miralax (For Daily Use) - PO 17 grams DAILY CASTRO Administration ASSESSMENT/PLAN: 54 year old, pleasant gentleman with a past medical history of hyperlipidemia, 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 who initially presented to the hospital for 1 day of severe 10/10 abdominal pain, admitted for the treatment of colitis #Acute Colitis #Liver Lesion #Hx of Melanoma in-situ #Liver Lesion: unclear etiology at this time, patient states he had both CT and PET scan performed in 2011 after resection of melanoma in-situ of R thumb -obtained report of CT in 2012: 1.9x2.1 cm hypodensity in right lobe of the liver that does not represent a simple cyst. Could not be characterized without intravenous contrast. Contrast enhanced MRI was recommended -PET scan 2011: peripherally faintly enhancing right lobe liver hypodensity without FDG activity, favoring a benign lesion, hemangioma is suspected (1.8 x 1.6cm) -will need a contrast enhanced MRI to further characterize the lesion, can be done outpatient -will need repeat colonoscopy as last one was 10 years ago -patient's oncologic surgeon is Dr. Jaspal Chu at [facility] #Acute Colitis: likely secondary to constipation component of stercoral colitis ; bloody BM overnight could be related to fecal impaction and fissures, however patient's last colonoscopy was in 2008 and he has liver lesion, improving -diet as tolerated -zosyn, convert to PO as per GI/primary -will need colonoscopy to assess for colonic neoplasms after acute symptoms resolve, likely outpatient workup #Prophylaxis -on heparin prophylaxis #Disposition -monitor on med-surg Heri Morris, PGY3 Call back if needed Visit type - Emergency Visit Emergency Visit: No - New Patient This patient is new to me today: No - Critical Care Critical Care patient: No ATTENDING PHYSICIAN STATEMENT I saw and evaluated the patient. I reviewed the resident's note and discussed the case with the resident. I agree with the resident's findings and plan as documented. SUBJECTIVE: OBJECTIVE: ASSESSMENT AND PLAN:
[2019-06-12] MEDS: DEXTROSE 5%-LACTATED RINGERS 1,000 ML IV SCH (16:37)
--- NOTE | 2019-06-12 16:49 | PN.GI ---
GI Progress Note Subjective: Abdominal pain resolved complains of lower back pain No further rectal bleeding and patient states having bowel movements - Objective Vital Signs: Vital Signs Temperature 98.5 F 06/12/19 13:00 Pulse Rate 82 06/12/19 13:00 Respiratory Rate 20 06/12/19 13:00 Blood Pressure 127/70 06/12/19 13:00 O2 Sat by Pulse Oximetry (%) 95 06/10/19 15:55 Constitutional: Calm Eyes: No: Sclera Icterus Cardiovascular: Yes: Regular Rate and Rhythm Respiratory: Yes: CTA Bilaterally Gastrointestinal Inspection: No: Distention ...Auscultate: Yes: Normoactive Bowel Sounds ...Palpate: Yes: Soft. No: Hepatomegaly, Splenomegaly, Tenderness Edema: No (No LE edema) Neurological: Yes: Alert Labs: CBC, BMP 06/12/19 06:50 06/12/19 06:50 INR, PTT INR 0.98 (0.83-1.09) 06/10/19 06:20 - ....Imaging Cat Scan: Report Reviewed, Image Reviewed Problem List - Problems (1) Colitis Assessment/Plan: Suspected Ischemic colitis precipiated by fecal retention Clinically improved Continue IV Abx Tolerating diet Agree with MiraLAX 17g daily Discussed colonoscopy with patient. He is hesitant to have this performed in an inpatient setting. I gave him my card to arrange outpatient follow-up if he continues to improve clinically. Code(s): K52.9 - NONINFECTIVE GASTROENTERITIS AND COLITIS, UNSPECIFIED
--- NOTE | 2019-06-12 17:35 | DS ---
Physical Exam: SUBJECTIVE: Patient seen and examined. Patient is currently asymptomatic. OBJECTIVE: Vital Signs Period Temp Pulse Resp BP Sys/Benites Pulse Ox Last 24 Hr 98.2 F-98.9 F 71-98 20-20 127-149/70-97 PHYSICAL EXAM GENERAL: The patient is awake, alert, and fully oriented, in no acute distress. HEAD: Normal with no signs of trauma. EYES: sclera anicteric, conjunctiva clear. NECK: Trachea midline, full range of motion, supple. LUNGS: Breath sounds equal, clear to auscultation bilaterally, no wheezes, no crackles, no accessory muscle use. HEART: Regular rate and rhythm, S1, S2 without murmur, rub or gallop. ABDOMEN: Soft, nontender, nondistended, normoactive bowel sounds, no guarding, no rebound, no hepatosplenomegaly, no masses. EXTREMITIES: 2+ pulses, warm, well-perfused, no edema. SKIN: Warm, dry, normal turgor, healing scar from in situ melanoma removal noted. LABS Laboratory Results - last 24 hr 06/12/19 06/12/19 06:50 06:50 WBC 13.8 H RBC 4.58 Hgb 13.7 Hct 40.4 MCV 88.3 MCH 29.8 MCHC 33.8 RDW 13.2 Plt Count 308 MPV 7.7 Absolute Neuts (auto) 9.9 H Neutrophils % 71.2 Lymphocytes % 17.8 D Monocytes % 8.3 Eosinophils % 2.3 Basophils % 0.4 Nucleated RBC % 0 Sodium 142 Potassium 4.1 Chloride 106 Carbon Dioxide 29 Anion Gap 8 BUN 9.0 Creatinine 1.4 H Est GFR (CKD-EPI)AfAm 64.63 Est GFR (CKD-EPI)NonAf 55.77 Random Glucose [address] abdo/pelvis Approximately 3.3 x 2 cm low-attenuation density/lesion in the right hepatic lobe for which correlation with contrast-enhanced MRI would be the study of choice. There is no evidence of hydroureteronephrosis or obstructing stones, bilaterally. Moderate amount of fecal residue in the colon. There is mild stranding surrounding the proximal sigmoid colon as well as the splenic flexure that may be on the basis of steroid coronal colitis. Cannot rule out inflammatory versus infectious process. Correlate for further evaluation No free air or free fluid in the abdomen pelvis. KUB 2 views of the abdomen reveal retained contrast in the cecum through the splenic flexure area. There is a cecal bascule. There is contrast in the appendix. There is some air distention seen involving small bowel loops. There is no sign of free air. CT scan from 2018 showed a distal colitis. A gross obstruction or pneumatosis is not seen. 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 He says its sharp, non radiating, lower abdominal pain, worsened after eating and associated with constipation with no improvement with senna. In the ED, a CT abdomen and pelvis depicted a large stool burden in the sigmoid and left colon, mild inflammatory changes around the left colon consistent with colitis possibly stercoral colitis due to the large stool burden although other types of colitis such as infectious inflammatory or ischemic could not be excluded as well.Suspicious mass on right hepatic lobe requiring hem/onc evaluation.FOBT was also ordered then found to be positive and patient continued to experience BRBPR after BM leading to D/c of heparin SuQ to Patient was then placed on IVF, IV levaquin and flagyl later switched to pip/ tazo. and dilaudid for pain control and made NPO,avoidance of narcotics, serial abdominal exam.Surgery was consulted and supported the plan in addition to recommending colonoscopy once inflammation had subsided. GI recommended one fleet enema for constipation then we decided to administer miralax afterwards. Patient abdominal pain began to improve advancing the patient to clear liquid as tolerated and to low fiber diet as he became asymptomatic.There were initial concerns of CHRISTIANNE due to fluctuating creatinine b/t 1.2-1.6 which responded to fluids but as per patient baseline is 1.6.Patient is to follow up outpatient with his PCP. GI and Hem/onc for further analysis of suspicious mass with an Hx of melanoma. Date of Discharge: 06/12/19 Minutes to complete discharge: 35 Discharge Summary Reason For Visit: COLITIS Current Active Problems Colitis (Acute) Ischemic colitis (Acute) Condition: Improved - Instructions Diet, Activity, Other Instructions: You came to the emergency room with complains of nausea/vomiting and abdominal pain and were found to have inflammatory changes within the colon likely due to colitis. We treated you with IV antibiotics and fluids, seen by both a GI doctor and surgeon, your symptoms improved and you were stable to be discharged home. Please take the antibiotic Augmentin two times a day for 5 days , start this evening Please follow up with your primary care physician, Dr. Otero within one week Please follow up with the insulation worker furnace installer, Dr. Vásquez within one week- you will need to have an colonoscopy as already discussed Please follow up with the lens hardener-oncologist, Dr. Bacon within one week or with your own oncologist On CT scan of you abdomen/pelvis, a lesion was found on your right hepatic lobe for which you will need to have a contrast-enhanced MRI to further evaluate this lesion. You might need PET scan and further evaluation *if you begin to have worsening abdominal pains, any bleeding, nausea/vomiting, chest pains, shortness of breath please return to the emergency room immediately follow up with your special machine stitcher Referrals: Adam Otero [Non Staff, Medical] - 1 Week Paras Vásquez DO [Staff Physician] - 1 Week Turner Bacon MD [Staff Physician] - 1 Week Disposition: HOME - Home Medications Comprehensive Discharge Medication List: Ambulatory Orders NK [No Known Home Medication] 06/10/19 Problem List - Problems (1) Colitis Code(s): K52.9 - NONINFECTIVE GASTROENTERITIS AND COLITIS, UNSPECIFIED (2) Ischemic colitis Code(s): K55.9 - VASCULAR DISORDER OF INTESTINE, UNSPECIFIED This patient is new to me today: Yes Date on this admission: 06/12/19 Emergency Visit: Yes ED Registration Date: 06/10/19 Care time: The patient presented to the Emergency Department on the above date and was hospitalized for further evaluation of their emergent condition. Critical Care patient: No - Discharge Referral Referred to [facility] No ATTENDING PHYSICIAN STATEMENT I saw and evaluated the patient. I reviewed the resident's note and discussed the case with the resident. I agree with the resident's findings and plan as documented. SUBJECTIVE: OBJECTIVE: ASSESSMENT AND PLAN:
--- NOTE | 2019-06-12 18:13 | PN ---
Teaching Attending Note Name of Resident: Pat Schmidt ATTENDING PHYSICIAN STATEMENT I saw and evaluated the patient. I reviewed the resident's note and discussed the case with the resident. I agree with the resident's findings and plan as documented. SUBJECTIVE: no fever or chills. No abd pain , had BM with no bleeding OBJECTIVE: NAD , awake ,alert , oriented. MMM, CV: RRR, NO MRG Lungs:CTAB Abd: soft, NT. nl BS ASSESSMENT AND PLAN: 54 y/o man with h/o HLP, melanoma resection in L thumb 2011, with 2 subsequent surgeries for cyst removal,last 06/07/19. He presented with abd pain and was found to have colitis 1- Colitis: possible ischemic colitis from constipation and suspected stercoral ulcer. can't r/o infectious colitis. - d/w ID. Augmentin for 5 more days - colo as out pt - f/u with GI . - tolerated regular diet - avoid constipation 2- CKD: patietn reports CR base line at 1.6. will dc IVF f/u as out pt 3- Hepatic lesion .likely hemangioma . per heme not lesion did not light up with Previous PET. MRI as out pt . ? hemangioma. f/u with ONC and GI 4- H/o melanoma on L thumb, s/p resection in 2011 with 2 subsequent resections f/u with derm and ONC . need stitches removed when instructed dc home .
== END 2019-06-12 19:06 | disposition home or self-care (01) | DRG 246 ==
LOC: JER 22:47 → JERBED 06-10 03:25 → J5S 06-10 15:26
PROVIDERS: ADMIT Internal Medicine; ATTEND Internal Medicine
DX: K55.9 Vascular disorder of intestine, unspecified (principal); I45.10 Unspecified right bundle-branch block; N17.9 Acute kidney failure, unspecified; E87.2 Acidosis; E86.0 Dehydration; E78.5 Hyperlipidemia, unspecified; K59.09 Other constipation; F17.210 Nicotine dependence, cigarettes, uncomplicated; R51 Headache; D72.828 Other elevated white blood cell count; K76.9 Liver disease, unspecified; R11.2 Nausea with vomiting, unspecified; Z85.820 Personal history of malignant melanoma of skin
CPT/HCPCS: 36415; 74018-TC-FY; 74176-TC; 76775-TC; 80048; 80053; 81003; 82272; 82436; 82550; 82565; 83605; 84133; 84300; 84484; 84540; 85025; 85027; 85610; 86850; 86900; 86901; 93005; 93010; 99284-25; J0131; J1644; J7030

== ENCOUNTER 2021-06-20 04:59 | Emergency (ER) | payer OTHER ==
[2021-06-20 05:06] VITALS: BP 146/89; PULSE 68; TEMP 97.8; BMI 31.7
[2021-06-20] MEDS ORDERED: METOCLOPRAMIDE HCL INJECTION 10 MG/2 ML VIAL IVPB ONE (05:16)
[2021-06-20] MEDS ORDERED: METOCLOPRAMIDE HCL INJECTION 10 MG/2 ML VIAL ONE (05:18)
[2021-06-20] MEDS ORDERED: SODIUM CHLORIDE 1,000 ML IV STA (06:25)
== END 2021-06-20 07:31 | disposition home or self-care (01) ==
LOC: FER 04:59
PROC: 3E033GC Introduction of Other Therapeutic Substance into Peripheral Vein, Percutaneous Approach (ICD-10-PCS; principal; 2021-06-20)
PROC: 3E033GC Introduction of Other Therapeutic Substance into Peripheral Vein, Percutaneous Approach (ICD-10-PCS; 2021-06-20)
PROC: 3E0337Z Introduction of Electrolytic and Water Balance Substance into Peripheral Vein, Percutaneous Approach (ICD-10-PCS; 2021-06-20)
DX: R51.9 Headache, unspecified (principal)
CPT/HCPCS: 70450-TC; 99284-25

== ENCOUNTER 2021-12-16 17:58 | Emergency (ER) | payer OTHER ==
[2021-12-16 18:08] VITALS: BP 135/94; PULSE 86; TEMP 99; BMI 29.4
[2021-12-16 19:01] LABS: ALBUMIN 4.3 g/dl (3.4-5.0); BILIRUBIN,TOTAL 0.7 mg/dl (0.2-1); CALCIUM 9.5 mg/dl (8.5-10); CREATININE 1.2 mg/dl (0.55-1.3); MAGNESIUM 2.1 mg/dL (1.8-2.4); PHOSPHOROUS 3.8 mg/dl (2.5-4.9); TOT PROT 7.1 g/dl (6.4-8.2)
[2021-12-16 19:44] LABS: BASO % 0.5 % (0-2.0); EOS % 1.4 % (0-4.5); HEMOGLOBIN 14.7 GM/dL (11.7-16.9); LYMPH % 24.9 % (8-40); MCHC 34.2 g/dl (32.0-35.9); MEAN CELL VOLUME 87.7 fl (80-96); MEAN PLT VOLUME 7.8 fl (7.5-11.1); MONO % 8.6 % (3.8-10.2); NEUT % 64.6 % (42.8-82.8); PLATELET COUNT 301 10^3/uL (134-434); WHITE BLOOD COUNT 10.6 K/mm3 (4.0-10.0)
== END 2021-12-16 19:54 | disposition home or self-care (01) ==
LOC: FER 17:58
DX: R51.9 Headache, unspecified (principal)
CPT/HCPCS: 36415; 80053; 83735; 84100; 85025; 99283-25